=== PATIENT | male | born 1995 | race Two or more races ===

== ENCOUNTER 2024-11-01 16:12 | Emergency (ER) | payer MEDICAID, OTHER ==
[~2024-11-01] VITALS: Ht 172.7 cm; Wt 87.9 kg
--- NOTE | 2024-11-01 17:57 | ED.PDOC ---
Mati. trauma (HPI) HPI Comments PT PRESENTED TO THE ER WITH C/C OF LEFT ARM PAIN S/P FALL NO DEFORMITIES NOTED. DENIES NUMBNESS, WEAKNESS OR ANY OTHER KNOWN INJURIES Chief Complaint: Fall Injury Time Seen by MD: 17:03 Reviewed notes: Nurses Notes, Medications, Allergies Allergies: Coded Allergies: Penicillins (Verified Allergy, Unknown, 11/01/24) Information Source: Patient Mode of Arrival: Ambulatory Past Medical History PAST MEDICAL HISTORY: Denies Surgical History: Denies all surgeries Family History Family History: Reviewed,noncontributory to illness, No family hx of Cancer, No family hx of DM, No family hx of Heart zhang, No family hx of HTN, No family hx ofKidney zhang, No family hx of Liver zhang, No family hx of Lung zhang, No family hx of Stroke Social History Smoker: Non-Smoker Alcohol: Denies ETOH Use Drugs: Denies Drug Use Constitutional: denies: chills, diaphoresis, fatigue, fever, malaise, sweats, weakness, others EENTM: denies: blurred vision, double vision, ear bleeding, ear discharge, ear drainage, ear pain, ear ringing, eye pain, eye redness, hearing loss, mouth pain, mouth swelling, nasal discharge, nose bleeding, nose congestion, nose pain, photophobia, tearing, throat pain, throat swelling, voice changes, others Respiratory: denies: cough, hemoptysis, orthopnea, SOB at rest, shortness of breath, SOB with excertion, stridor, wheezing, others Cardiovascular: denies: chest pain, dizzy spells, diaphoresis, Dyspnea on exertion, edema, irregular heart beat, left arm pain, lightheadedness, palpitations, PND, syncope, others Gastrointestinal: denies: abdomen distended, abdominal pain, blood streaked bowels, constipated, diarrhea, dysphagia, difficulty swallowing, hematemesis, melena, nausea, poor appetite, poor fluid intake, rectal bleeding, rectal pain, vomiting, others Genitourinary: denies: burning, dysuria, flank pain, frequency, hematuria, incontinence, penile discharge, penile sore, pain, testicle pain, testicle swelling, urgency, others Neurological: denies: dizziness, fainting, headache, left sided numbness, left sided weakness, numbness, paresthesia, pre-existing deficit, right sided numbness, right sided weakness, seizure, speech problems, tingling, tremors, weakness, others Musculoskeletal: reports: others (LEFT FOREARM AND WRIST PAIN); denies: back pain, gout, joint pain, joint swelling, muscle pain, muscle stiffness, neck pain Integumetry: denies: bruises, change in color, change in hair/nails, dryness, laceration, lesions, lumps, rash, wounds, others Allergic/Immunocompromised: denies: Difficulty Healing, Frequent Infections, Hives, Itching, others Hematologic/Lymphatic: denies: anemia, blood clots, easy bleeding, easy bruising, swollen glands, others Endocrine: denies: excessive hunger, excessive sweating, excessive thirst, excessive urination, flushing, intolerance to cold, intolerance to heat, unexplained weight gain, unexplained weight loss, others Psychiatric: denies: anxiety, bipolar disorder, depression, hopeless, panic disorder, schizophrenia, sleepless, suicidal, others Physical Exam General Appearance: No Apparent Distress, Normal HEENT: Pharynx Normal Neck: Full Range of Motion, Non-Tender Respiratory: Chest Non-Tender, Lungs Clear, No Respiratory Distress, Normal Breath Sounds Cardiovascular: No Murmur, Normal Peripheral Pulses, Regular Rate/Rhythm Breast Exam: Deferred Gastrointestinal: Non Tender, Soft Genitalia: Deferred Pelvic: Deferred Rectal: Deferred Extremities: Normal capillary refill, Normal inspection, Normal range of motion, Non-tender, No pedal edema Musculoskeletal : Location: Left Extremity Location: Forearm (TENDERNESS PALPATED OVER DISTAL FOREARM NO NOTED CREPITUS, OR EDEMA NO NOTED ABRASIONS OR LACERATIONS), Wrist (TENDERNESS PALPATED OVER THE DORSAL ASPECT OF REST NO KNOWN ABRASIONS LESIONS OR LACERATIONS NO NOTED SWELLING) Apperance: Normal Neurologic: Alert, occupational therapy department chair II-XII nml as Tested, No Motor Deficits, Normal Affect, Normal Mood, No Sensory Deficits Cerebellar Function: Normal Reflexes: Normal Skin: Dry, Normal Color, Warm Lymphatic: No Adenopathy Was a procedure done? Was a procedure done?: No Differential Diagnosis Multiple Trauma: Fractures, Abrasions, Contusion, Hematoma X-Ray, Labs, Meds, VS Vital Signs Date Time Temp Pulse Resp B/P (MAP) Pulse Ox O2 Delivery O2 Flow Rate FiO2 11/01/24 16:37 99.5 75 18 125/85 (98) 97 99.5 X-Ray, Labs, Meds, VS Comment LEFT FOREARM WRIST X-RAY SHOWED NO ACUTE FRACTURES OSSEOUS LESIONS OR DISLOCATIONS. LIKELY CONTUSION. PATIENT REPORTS IMPROVEMENT IN PAIN REQUESTED DISCHARGE AT THIS TIME. ADVISED ON RICE. PATIENT GIVEN 3 DAYS OFF WORK TO REST ELEVATE AND ICE. ADVISED TO CALL HIS PCP SCHEDULED FOLLOW-UP IN 2-3 DAYS CONSIDER FURTHER IMAGING SUCH MRI IF SINCE PERSIST. ER RETURN PRECAUTIONS GIVEN PATIENT INDICATES UNDERSTANDING AND AGREES WITH DISCHARGE PLAN OF CARE. Time of 1ST Reevaluation: 17:30 Reevaluation 1ST: Unchanged Time of 2ND Reevaluation: 19:19 Reevaluation 2ND: Improved Patient Education/Counseling: Diagnosis, Treatment, Prognosis, Need For Follow Up Family Education/Counseling: No Family Present Departure 1 Departure Time of Disposition: 19:19 Impression: Primary Impression: Contusion of left forearm Qualified Codes: S50.12XA - Contusion of left forearm, initial encounter Disposition: 01 HOME / SELF CARE / HOMELESS Condition: Stable Discharged With: Self Critical Care Note Critical Care Time?: No Stability Stability form required: ANDREW Diane November 01, 2024 17:57
--- NOTE | 2024-11-01 18:30 | DVH ---
CLINICAL INDICATION: ARM PAIN TECHNIQUE: XY L HUMERUS XRAY, XY L FOREARM XRAY Comparison: None FINDINGS/IMPRESSION: : There is no evidence of acute fracture or dislocation. Soft tissues are unremarkable.
[2024-11-01 22:40] VITALS: BP 136/78; PULSE 78; RESP 18; TEMP 99; O2SAT 96
== END 2024-11-01 22:49 | disposition home or self-care (01) ==
LOC: ER 16:12
DX: S50.12XA Contusion of left forearm, initial encounter (principal); Z88.0 Allergy status to penicillin; W19.XXXA Unspecified fall, initial encounter; Y93.89 Activity, other specified; Y92.89 Other specified places as the place of occurrence of the external cause; Y99.8 Other external cause status
CPT/HCPCS: 73060; 73090